=== PATIENT | male | born 1995 | race Caucasian/White ===

== ENCOUNTER → 2023-02-22 16:48 | Outpatient (BNVA) | payer SELFPAY | PROVIDERS: Family Provider Social Worker Clinical; PCP Social Worker Clinical; Visit Provider Nurse Practitioner Family | DX: R39.9 Unspecified symptoms and signs involving the genitourinary system (principal); R44.1 Visual hallucinations; R53.1 Weakness; R35.89 Other polyuria; E16.2 Hypoglycemia, unspecified | CPT/HCPCS: 80053; 81000; 83036; 85025 ==

== ENCOUNTER → 2023-03-11 09:42 | Outpatient (BNVA) | payer SELFPAY | PROVIDERS: Family Provider Social Worker Clinical; PCP Nurse Practitioner; Referring Provider Nurse Practitioner; Visit Provider Nurse Practitioner | DX: R53.1 Weakness (principal) | CPT/HCPCS: 80053; 85025 ==

== ENCOUNTER → 2024-06-06 09:45 | Outpatient (BNVA) | payer SELFPAY | PROVIDERS: PCP Nurse Practitioner; Visit Provider Nurse Practitioner | DX: J20.9 Acute bronchitis, unspecified (principal) | CPT/HCPCS: 71046 ==